=== PATIENT | female | born 2000 | race Caucasian/White ===

== ENCOUNTER 2020-06-04 17:49 | Emergency (ER) | payer OTHER ==
[~2020-06-04] VITALS: Ht 152.4 cm; Wt 72.6 kg
[2020-06-04] MEDS ORDERED: SPRINTEC 28 DA1 EACH (18:01)
== END 2020-06-04 21:42 | disposition home or self-care (01) ==
LOC: ER 17:49
DX: R50.9 Fever, unspecified (principal); U07.1 COVID-19